=== PATIENT | male | born 1955 | race Caucasian/White ===

== ENCOUNTER 2022-07-08 12:54 | Outpatient (RCR) | payer MEDICARE | END 2022-07-13 | LOC: WSPT | DX: S46.092D Other injury of muscle(s) and tendon(s) of the rotator cuff of left shoulder, subsequent encounter (principal) ==

== ENCOUNTER 2022-10-12 08:30 | Outpatient (RCR) | payer MEDICARE | END 2022-10-13 | disposition home or self-care (01) | LOC: WSPT | DX: S46.092D Other injury of muscle(s) and tendon(s) of the rotator cuff of left shoulder, subsequent encounter (principal); X58.XXXD Exposure to other specified factors, subsequent encounter ==